=== PATIENT | male | born 2000 | race African-American/Black ===

== ENCOUNTER 2021-11-05 09:26 | Emergency (ER) | payer MEDICAID, SELFPAY ==
[2021-11-05 09:30] VITALS: BP 146/80; PULSE 79; RESP 18; TEMP 36.3; O2SAT 97; BMI 25.1
--- NOTE | 2021-11-05 10:05 | ED.GENADULT ---
HPI - General Adult General Date Seen: 11/05/21 <Chante Warren MD - Last Filed: 11/05/21 14:10> Chief complaint: Arrhythmia/Palpitations <Chante Warren MD - Last Filed: 11/05/21 14:10> Stated complaint: heart skipping beats <Chante Warren MD - Last Filed: 11/05/21 14:10> Time Seen by Provider: 11/05/21 09:40 <Chante Warren MD - Last Filed: 11/05/21 14:10> Source: patient <Chante Warren MD - Last Filed: 11/05/21 14:10> Limitations: no limitations <Chante Warren MD - Last Filed: 11/05/21 14:10> History of Present Illness HPI narrative: Patient is a 20-year-old male who presents for palpitations which he noticed starting this morning. He says every once in a while he feels a skipped beat or a thud in his chest. These are not associated with any chest pain, shortness of breath, lightheadedness, fainting, or other symptoms. He does not recall having anything like this before. He does go to the gym regularly, has not had any difficulties there. He says he has been diagnosed previously with costochondritis, that is been ongoing for some time and he has not taken anything for that. This sometimes bothers him when he lifts weights. He has not had any fevers or chills, no cough. He says he does struggle little bit with anxiety, does not use any substances. Has not had any vomiting or diarrhea. No other medical problems. <Chante Warren MD - Last Filed: 11/05/21 14:10> Related Data Home medications: Home Medications Medication Instructions Recorded Confirmed azelastine 137 mcg (0.1 %) nasal INTRANASAL 11/05/21 spray aerosol fluticasone propionate 50 INTRANASAL 11/05/21 mcg/actuation nasal spray,suspension sertraline 50 mg tablet mg 11/05/21 <Chante Warren MD - Last Filed: 11/05/21 14:10> Allergies/adverse reactions: Allergies Allergy/AdvReac Type Severity Reaction Status Date / Time No Known Drug Allergies Allergy Verified 11/05/21 09:35 <Chante Warren MD - Last Filed: 11/05/21 14:10> Review of Systems Status of ROS: Reports: 10 or more systems reviewed and unremarkable except as noted in History and below <Chante Warren MD - Last Filed: 11/05/21 14:10> [facility] Medical History: Medical History Anxiety <Chante Warren MD - Last Filed: 11/05/21 14:10> Social History: Social History Smoking Status: Never smoker Do you use any of these nicotine containing products: None Second hand tobacco smoke exposure: No How often do you have a drink containing alcohol: monthly or less AUDIT-C Alcohol total score: 1 Non-prescribed substance use: denies use <Chante Warren MD - Last Filed: 11/05/21 14:10> Exam Const: Vital Signs, click to edit/add: Vital Signs - 24 hr 11/05/21 09:30 11/05/21 10:44 Temperature 97.4 F L Pulse Rate [Right Pulse Oximeter] 79 65 Respiratory Rate 18 16 Blood Pressure [Ri ght Upper Arm] 146/80 H 111/72 Pulse Oximetry 97 99 <Chante Warren MD - Last Filed: 11/05/21 14:10> Documenting provider has reviewed patient's vital signs: yes <Chante Warren MD - Last Filed: 11/05/21 14:10> Common normals: no apparent distress, average body habitus, oriented x3, no limitations, healthy appearing, alert and well nourished <Chante Warren MD - Last Filed: 11/05/21 14:10> General appearance: cooperative and comfortable; not in distress <Chante Warren MD - Last Filed: 11/05/21 14:10> Orientation/consciousness: Yes awake, Yes oriented to person and Yes oriented to place <Chante Warren MD - Last Filed: 11/05/21 14:10> HENMT: Common normals: normocephalic <Chante Warren MD - Last Filed: 11/05/21 14:10> Head and scalp: normocephalic <Chante Warren MD - Last Filed: 11/05/21 14:10> Eye: Common normals: PERRL <Chante Warren MD - Last Filed: 11/05/21 14:10> General eye: normal appearance of both eyes <Chante Warren MD - Last Filed: 11/05/21 14:10> Pupil: PERRL <Chante Warren MD - Last Filed: 11/05/21 14:10> Neck & C-Spine: Common normals: no lymphadenopathy and supple <Chante Warren MD - Last Filed: 11/05/21 14:10> Chest: Common normals: inspection of chest normal <Chante Warren MD - Last Filed: 11/05/21 14:10> Resp: Common normals: normal respiratory effort and clear to auscultation bilaterally <Chante Warren MD - Last Filed: 11/05/21 14:10> Auscultation: clear to auscultation bilaterally <Chante Warren MD - Last Filed: 11/05/21 14:10> Cardio: Common normals: regular rate, regular rhythm and no murmurs <Chante Warren MD - Last Filed: 11/05/21 14:10> Rate: regular rate <Chante Warren MD - Last Filed: 11/05/21 14:10> Rhythm: regular rhythm <Chante Warren MD - Last Filed: 11/05/21 14:10> GI: Common normals: Normal to inspection, nondistended, normoactive bowel sounds present, soft to palpation and non-tender <Chante Warren MD - Last Filed: 11/05/21 14:10> Palpation: soft <Chante Warren MD - Last Filed: 11/05/21 14:10> Extremity: Common normals: normal to inspection <Chante Warren MD - Last Filed: 11/05/21 14:10> Neuro: Common normals: oriented x3 <Chante Warren MD - Last Filed: 11/05/21 14:10> Sensorium/orientation: awake, alert, oriented to person and oriented to place <Chante Warren MD - Last Filed: 11/05/21 14:10> Speech: speech normal <Chante Warren MD - Last Filed: 11/05/21 14:10> Gait (neuro): normal gait <MD Christian Fsih Last Filed: 11/05/21 14:10> Psych: Common normals: mental status grossly normal, thought process normal and cooperative <MD Christian Fish Last Filed: 11/05/21 14:10> Thought process: normal thought process <MD Christian Fish Last Filed: 11/05/21 14:10> Skin: Common normals: no rashes or lesions noted and no jaundice <MD Christian Fish Last Filed: 11/05/21 14:10> General skin exam: no rashes or lesions noted <MD Christian Fish Last Filed: 11/05/21 14:10> Course Course Hospital Course: EKG done here in the emergency department shows by my review a normal sinus rhythm, ventricular rate of 83 beats per minute. He has a PVC noted on EKG. I also heard a couple of PVCs when I was listening to his heart. We discussed PVCs. I think this is clearly the explanation for his palpitations. We discussed that these are generally benign in nature. He is asymptomatic with the exception of sensation of skipped beats. His history does not suggest that he would have any electrolyte abnormalities or reason for doing labs at this time. Discussed that if he is having these more frequently or become symptomatic, it would be reasonable to follow up with primary care. For now, I have encouraged him to minimize use of caffeine or any stimulant drinks. He already stays away from other substances. He did ask about management of his costochondritis and we talked about using nonsteroidals for that. <Chante Warren MD - Last Filed: 11/05/21 14:10> Vital Signs Vital signs: Initial Vital Signs Temperature 97.4 F L 11/05/21 09:30 Temperature Source Temporal Artery Scan 11/05/21 09:30 Pulse Rate 79 11/05/21 09:30 Pulse Rhythm 11/05/21 09:30 Respiratory Rate 18 11/05/21 09:30 Blood Pressure 146/80 H 06/28/22 09:30 Blood Pressure Mean 102 11/05/21 09:30 Blood Pressure Position Sitting 11/05/21 09:30 Pulse Oximetry 97 11/05/21 09:30 Oxygen Delivery Method 11/05/21 09:30 Vital Signs Temperature 97.4 F L 11/05/21 09:30 Pulse Rate 79 11/05/21 09:30 Respiratory Rate 18 11/05/21 09:30 Blood Pressure 146/80 H 11/05/21 09:30 Pulse Oximetry 97 11/05/21 09:30 Temperature 97.4 F L 11/05/21 09:30 Pulse Rate 65 11/05/21 10:44 Respiratory Rate 16 11/05/21 10:44 Blood Pressure 111/72 11/05/21 10:44 Pulse Oximetry 99 11/05/21 10:44 <Chante Warren MD - Last Filed: 11/05/21 14:10> Discharge Plan Discharge Clinical Impression: Ventricular premature beats <Chante Warren MD - Last Filed: 11/05/21 14:10> Patient Disposition: Home, Self-Care <Chante Warren MD - Last Filed: 11/05/21 14:10> Condition: Stable <Chante Warren MD - Last Filed: 11/05/21 14:10> Instructions: Premature Ventricular Contractions (ED) <Chante Warren MD - Last Filed: 11/05/21 14:10> Additional Instructions: Avoid significant caffeine or other stimulants. Primary care follow-up if you are having more frequent PVCs or worsening symptoms. Return for severe symptoms such as fainting. <Chante Warren MD - Last Filed: 11/05/21 14:10> Prescriptions: No Action azelastine 137 mcg (0.1 %) aerosol,spray INTRANASAL 0RF fluticasone propionate 50 mcg/actuation spray,suspension INTRANASAL 0RF Label Comments: SHAKE LIQUID AND USE 2 SPRAYS IN EACH NOSTRIL TWICE DAILY sertraline 50 mg tablet 0RF <Chante Warren MD - Last Filed: 11/05/21 14:10> Stand Alone Forms: [employer] Info Instructions <Chante Warren MD - Last Filed: 11/05/21 14:10>
[2021-11-05 10:44] VITALS: BP 111/72; PULSE 65; RESP 16; O2SAT 99
== END 2021-11-05 10:58 | disposition home or self-care (01) ==
LOC: ED 10:58
PROVIDERS: Emergency Provider Emergency Medicine; PCP Family Medicine
DX: I49.3 Ventricular premature depolarization (principal)
CPT/HCPCS: 93005; 99283; 99284

== ENCOUNTER 2022-11-25 16:44 | Emergency (ER) | payer MEDICAID, SELFPAY ==
[2022-11-25 16:49] VITALS: BP 120/75; PULSE 89; RESP 18; TEMP 37.3; O2SAT 97; BMI 24.4
--- NOTE | 2022-11-25 16:58 | ED_ITS ---
HPI - Eye Problem General Time Seen by Provider: 16:58 Date Seen: 11/25/22 Chief complaint: Eye Problems Stated complaint: R eye pain Time Seen by Provider: 11/25/22 16:56 Source: patient, RN notes reviewed and old records reviewed Mode of arrival: ambulatory Limitations: no limitations History of Present Illness HPI Narrative: 21-year-old male who comes in with eye pain and photosensitivity. Patient reports right eye pain starting yesterday. No injury. Watering a bit more than usual but no discharge. Vision is unchanged. No known exposure to UV light. Does not were contacts. Has not been using any eyedrops. Related Data Home Medications Medication Instructions Recorded Confirmed azelastine 137 mcg (0.1 %) nasal intranasal 11/05/21 spray aerosol fluticasone propionate 50 intranasal 11/05/21 mcg/actuation nasal spray,suspension sertraline 50 mg tablet mg 11/05/21 Allergies Allergy/AdvReac Type Severity Reaction Status Date / Time No Known Drug Allergies Allergy Verified 11/05/21 09:35 Review of Systems Status of ROS: Reports: 10 or more systems reviewed and unremarkable except as noted in History and below [facility] Medical History Anxiety Social History Smoking Status: Never smoker Do you use any of these nicotine containing products: None Second hand tobacco smoke exposure: No How often do you have a drink containing alcohol: monthly or less How many standard drinks containing alcohol do you have on a typical day: 3 or 4 How often do you have six or more drinks on one occasion: Never AUDIT-C Alcohol total score: 2 Non-prescribed substance use: denies use service: No Exam Narrative: Exam Narrative: General: well nourished , NAD Head: Atraumatic and normocephalic ENT: External ears and external nose are normal Eyes: Trace conjunctival injection on the right with no ciliary flush. External ocular movements intact, no pain with external ocular movements. Pupillary light reflex intact bilaterally. Trace corneal clouding without hyphema. Pain not improved after instillation of tetracaine and no corneal abrasion or foreign body with fluorescein stain and eyelid eversion. Neck: Full spontaneous range of motion of the neck Lungs: No respiratory distress Musculoskeletal: No tenderness or deformity Neurologic: No gross focal neurologic deficits Skin: No rashes Psych: Mood and affect are appropriate Const: Vital Signs, click to edit/add: Vital Signs - 24 hr 11/25/22 16:49 Temperature 99.2 F Pulse Rate [Right Pulse Oximeter] 89 Respiratory Rate 18 Blood Pressure [Ri ght Upper Arm] 120/75 Pulse Oximetry 97 Oxygen Delivery Me thod Room Air Course Course Hospital Course: Patient seen and examined, prior records reviewed. Patient presents today with right eye pain and photophobia, no trauma. On exam, no ciliary flush and pupil is reactive, no headache, nausea, or vomiting to suggest acute angle closure glaucoma although unable to test pressures. Will consider uveitis or keratitis. No uptake with fluorescein stain. Patient does occasionally smoke cigarettes. Reevaluation(s) Time of Reevaluation #1: 17:45 Reevaluation #1: Care discussed with Dr. Jones, [facility] who would like see the patient before starting on ocular steroid but does feel like this could represent today anterior uveitis. Appointment is made for 10:30 a.m. tomorrow. Patient will be discharged with limited number of [place] to help with pain until he is able to follow-up. Vital Signs Vital signs: Initial Vital Signs Temperature 99.2 F 11/25/22 16:49 Temperature Source Temporal Artery Scan 11/25/22 16:49 Pulse Rate 89 11/25/22 16:49 Respiratory Rate 18 11/25/22 16:49 Blood Pressure 120/75 11/25/22 16:49 Blood Pressure Mean 90 11/25/22 16:49 Blood Pressure Position Sitting 11/25/22 16:49 Pulse Oximetry 97 11/25/22 16:49 Oxygen Delivery Method Room Air 11/25/22 16:49 Vital Signs Temperature 99.2 F 11/25/22 16:49 Pulse Rate 89 11/25/22 16:49 Respiratory Rate 18 11/25/22 16:49 Blood Pressure 120/75 11/25/22 16:49 Pulse Oximetry 97 11/25/22 16:49 Oxygen Delivery Method Room Air 11/25/22 16:49 Temperature 99.2 F 11/25/22 16:49 Pulse Rate 89 11/25/22 16:49 Respiratory Rate 18 11/25/22 16:49 Blood Pressure 120/75 11/25/22 16:49 Pulse Oximetry 97 11/25/22 16:49 Oxygen Delivery Method Room Air 11/25/22 16:49 Discharge Plan Discharge Clinical Impression: Acute right eye pain, Photophobia of right eye Patient Disposition: Home, Self-Care Condition: Stable Instructions: Eye Pain (ED), Photophobia (ED) Additional Instructions: Go to [facility] at [address] [place] [address] in [place] for an appointment at 10:30 a.m. tomorrow Activity Level: Activity as Tolerated Prescriptions: No Action azelastine 137 mcg (0.1 %) aerosol,spray INTRANASAL fluticasone propionate 50 mcg/actuation spray,suspension INTRANASAL Patient Comments: SHAKE LIQUID AND USE 2 SPRAYS IN EACH NOSTRIL TWICE DAILY sertraline 50 mg tablet Follow Up/Referrals: Melodie Mckeon DO [Primary Care Provider] - Stand Alone Forms: [employer] Info Instructions
[2022-11-25] MEDS: TETRACAINE 0.5% OPHTH 2 DROP EYE-RIGHT (17:30)
[2022-11-25] MEDS: FLUORESCEIN SODIUM TOPICAL STRIP 1 STRIP EYE-RIGHT (17:30)
== END 2022-11-25 18:13 | disposition home or self-care (01) ==
PROVIDERS: Emergency Provider Family Medicine; PCP Family Medicine
DX: H57.11 Ocular pain, right eye (principal); H53.141 Visual discomfort, right eye
CPT/HCPCS: 99283; 99284; A9270

== ENCOUNTER 2022-12-08 14:23 | Emergency (ER) | payer MEDICAID, SELFPAY ==
[2022-12-08 14:31] VITALS: BP 128/79; RESP 18; TEMP 36.6; O2SAT 99; BMI 24.4
--- NOTE | 2022-12-08 15:08 | ED_ITS ---
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 He says he was prescribed an antibiotic, moxifloxacin, couple of weeks ago but only took couple of days of the 5 day course and then lost the prescription. His girlfriend was also being treated for the same thing, he is not sure how much of her antibiotic she took or did not take but they have continued to have intercourse and his symptoms have returned. He does not have discharge, fevers, or other changes. Review of his [facility] notes show that GC chlamydia and Ureaplasma were all negative. Related Data Home Medications Medication Instructions Recorded Confirmed azelastine 137 mcg (0.1 %) nasal intranasal 11/05/21 spray aerosol fluticasone propionate 50 intranasal 11/05/21 mcg/actuation nasal spray,suspension sertraline 50 mg tablet mg 11/05/21 Previous Rx's Medication Instructions Recorded moxifloxacin 400 mg tablet 400 mg PO DAILY 5 days #5 tabs 12/08/22 Allergies Allergy/AdvReac Type Severity Reaction Status Date / Time No Known Drug Allergies Allergy Verified 11/05/21 09:35 Review of Systems Status of ROS: Reports: 6 or more systems reviewed and unremarkable except as noted in History and below [facility] Medical History Anxiety Social History Smoking Status: Never smoker Do you use any of these nicotine containing products: None Second hand tobacco smoke exposure: No How often do you have a drink containing alcohol: monthly or less How many standard drinks containing alcohol do you have on a typical day: 3 or 4 How often do you have six or more drinks on one occasion: Never AUDIT-C Alcohol total score: 2 Non-prescribed substance use: denies use service: No Exam Narrative: Exam Narrative: Vital signs reviewed In general, alert, well-appearing young man. Abdomen: Soft nontender. No CVA tenderness. Skin: Warm dry. Const: Vital Signs, click to edit/add: Vital Signs - 24 hr 12/08/22 14:31 Temperature 98 F Respiratory Rate 18 Blood Pressure [Le ft Upper Arm] 128/79 Pulse Oximetry 99 Oxygen Delivery Me thod Room Air Documenting provider has reviewed patient's vital signs: yes Course Course Hospital Course: At this point, given that he was incompletely treated and has continued to have intercourse, I think it makes sense just to treat with a full course of moxifloxacin and then he can retest afterward if he would like. I do not think additional testing is likely the reveal anything new today given that it was just done on November 27. Return for worsening. Stressed that they should avoid intercourse for 2 weeks well they are both being treated. Vital Signs Vital signs: Initial Vital Signs Temperature 98 F 12/08/22 14:31 Temperature Source Temporal Artery Scan 12/08/22 14:31 Pulse Rhythm Regular 12/08/22 14:31 Respiratory Rate 18 12/08/22 14:31 Blood Pressure 128/79 12/08/22 14:31 Blood Pressure Mean 95 12/08/22 14:31 Blood Pressure Position Sitting 12/08/22 14:31 Pulse Oximetry 99 12/08/22 14:31 Oxygen Delivery Method Room Air 12/08/22 14:31 Vital Signs Temperature 98 F 12/08/22 14:31 Respiratory Rate 18 12/08/22 14:31 Blood Pressure 128/79 12/08/22 14:31 Pulse Oximetry 99 12/08/22 14:31 Oxygen Delivery Method Room Air 12/08/22 14:31 Temperature 98 F 12/08/22 14:31 Respiratory Rate 18 12/08/22 14:31 Blood Pressure 128/79 12/08/22 14:31 Pulse Oximetry 99 12/08/22 14:31 Oxygen Delivery Method Room Air 12/08/22 14:31 Discharge Plan Discharge Clinical Impression: Mycoplasma infection Patient Disposition: Home, Self-Care Condition: Stable Instructions: Nonspecific Urethritis in Men (ED) Additional Instructions: Take antibiotic as prescribed. Clinic follow-up for retesting if desired. No intercourse for 2 weeks while undergoing treatment. Prescriptions: New moxifloxacin 400 mg tablet 400 mg PO DAILY 5 Days Qty: 5 0RF No Action azelastine 137 mcg (0.1 %) aerosol,spray INTRANASAL fluticasone propionate 50 mcg/actuation spray,suspension INTRANASAL Patient Comments: SHAKE LIQUID AND USE 2 SPRAYS IN EACH NOSTRIL TWICE DAILY sertraline 50 mg tablet Follow Up/Referrals: Melodie Mckeon DO [Primary Care Provider] - Stand Alone Forms: [employer] Info Instructions
== END 2022-12-08 15:10 | disposition home or self-care (01) ==
PROVIDERS: Emergency Provider Emergency Medicine; PCP Family Medicine
DX: R10.30 Lower abdominal pain, unspecified (principal); A49.3 Mycoplasma infection, unspecified site
CPT/HCPCS: 99283

== ENCOUNTER 2022-12-30 17:04 | Emergency (ER) | payer MEDICAID, SELFPAY ==
[2022-12-30 17:08] VITALS: BP 115/78; PULSE 83; RESP 18; TEMP 36.2; O2SAT 97; BMI 24.4
--- NOTE | 2022-12-30 17:56 | ED_ITS ---
HPI - General Adult General Date Seen: 12/30/22 Chief complaint: Abdominal Pain Stated complaint: abdominal pain Time Seen by Provider: 12/30/22 17:42 Source: patient Mode of arrival: ambulatory Limitations: no limitations History of Present Illness HPI narrative: Patient is a 22-year-old male here in [place] for STD testing. He did have a recently diagnosed mycoplasma infection, had 2 courses of antibiotics for that. Symptomatically he is improved but wanted to make sure that the infection was cleared. He just wants general STD testing to include gonorrhea, chlamydia, HIV and syphilis. He does tell me that his girlfriend has subsequently found out she is , so they are dealing with that. He notes that their relationship is somewhat unstable, but does say that he and she have been working through this together reasonably well. He is uncertain what she ultimately will do regarding the . Her symptoms have improved in terms of the abdominal pain that she was having. He says they both did complete the antibiotics and abstained from sex during treatment. Related Data Home Medications Medication Instructions Recorded Confirmed azelastine 137 mcg (0.1 %) nasal intranasal 11/05/21 spray aerosol fluticasone propionate 50 intranasal 11/05/21 mcg/actuation nasal spray,suspension sertraline 50 mg tablet mg 11/05/21 Previous Rx's Medication Instructions Recorded moxifloxacin 400 mg tablet 400 mg PO DAILY 5 days #5 tabs 12/08/22 Allergies Allergy/AdvReac Type Severity Reaction Status Date / Time No Known Drug Allergies Allergy Verified 11/05/21 09:35 Review of Systems Status of ROS: Reports: 6 or more systems reviewed and unremarkable except as noted in History and below [facility] Medical History Anxiety ?F41.9 - Anxiety disorder, unspecified (ICD-10) Social History Smoking Status: Never smoker Do you use any of these nicotine containing products: None Second hand tobacco smoke exposure: No How often do you have a drink containing alcohol: monthly or less How many standard drinks containing alcohol do you have on a typical day: 3 or 4 How often do you have six or more drinks on one occasion: Never AUDIT-C Alcohol total score: 2 Non-prescribed substance use: denies use service: No Exam Narrative: Exam Narrative: Vital signs reviewed In general, alert, well-appearing male. Abdomen: Soft nontender. No CVA tenderness. Skin: Warm dry well perfused. Const: Vital Signs, click to edit/add: Vital Signs - 24 hr 12/30/22 17:08 Temperature 97.1 F L Pulse Rate [Pulse Oximeter] 83 Respiratory Rate 18 Blood Pressure [Ri ght Upper Arm] 115/78 Pulse Oximetry 97 Oxygen Delivery Me thod Room Air Documenting provider has reviewed patient's vital signs: yes Course Course Hospital Course: Will go ahead and do STD testing for him today, screen for mycoplasma infection, gonorrhea and chlamydia with urine and will draw blood for HIV and syphilis. Discussed with him that we will call if there is anything that shows up needing treatment. He can log in on my health if he wants to review the results himself. Vital Signs Vital signs: Initial Vital Signs Temperature 97.1 F L 12/30/22 17:08 Temperature Source Temporal Artery Scan 12/30/22 17:08 Pulse Rate 83 12/30/22 17:08 Pulse Rhythm Regular 12/30/22 17:08 Respiratory Rate 18 12/30/22 17:08 Blood Pressure 115/78 12/30/22 17:08 Blood Pressure Mean 90 12/30/22 17:08 Blood Pressure Position Sitting 12/30/22 17:08 Pulse Oximetry 97 12/30/22 17:08 Oxygen Delivery Method Room Air 12/30/22 17:08 Vital Signs Temperature 97.1 F L 12/30/22 17:08 Pulse Rate 83 12/30/22 17:08 Respiratory Rate 18 12/30/22 17:08 Blood Pressure 115/78 12/30/22 17:08 Pulse Oximetry 97 12/30/22 17:08 Oxygen Delivery Method Room Air 12/30/22 17:08 Temperature 97.1 F L 12/30/22 17:08 Pulse Rate 83 12/30/22 17:08 Respiratory Rate 18 12/30/22 17:08 Blood Pressure 115/78 12/30/22 17:08 Pulse Oximetry 97 12/30/22 17:08 Oxygen Delivery Method Room Air 12/30/22 17:08 Discharge Plan Discharge Clinical Impression: Screen for STD (sexually transmitted disease) Patient Disposition: Home, Self-Care Condition: Stable Additional Instructions: We will call you if there is anything that needs to be treated. You can check the results on my health if you would like. Prescriptions: No Action azelastine 137 mcg (0.1 %) aerosol,spray INTRANASAL fluticasone propionate 50 mcg/actuation spray,suspension INTRANASAL Patient Comments: SHAKE LIQUID AND USE 2 SPRAYS IN EACH NOSTRIL TWICE DAILY sertraline 50 mg tablet moxifloxacin 400 mg tablet 400 mg PO DAILY 5 Days Qty: 5 0RF Follow Up/Referrals: Melodie Mckeon DO [Primary Care Provider] - Stand Alone Forms: [employer] Info Instructions
[2022-12-30 19:51] LABS: HIV 1/2/P24 Combo Screen* Negative (Negative)
[2022-12-30 20:26] LABS: Chlamydia DNA Amplified* NOT DETECTED (No Detected); GC DNA Amplified* NOT DETECTED (No Detected)
[2023-01-02 03:30] LABS: Rapid Plasma Reagin (RPR) Non Reactive (Non Reactive)
== END 2022-12-30 18:41 | disposition home or self-care (01) ==
PROVIDERS: Emergency Provider Emergency Medicine; PCP Family Medicine
DX: Z11.3 Encounter for screening for infections with a predominantly sexual mode of transmission (principal)
CPT/HCPCS: 36415; 86592; 86703; 87109; 87491; 87563; 87591; 87798; 99282; 99283

== ENCOUNTER 2023-06-15 21:28 | Emergency (ER) | payer OTHER, SELFPAY ==
[2023-06-15 21:33] VITALS: BP 132/76; PULSE 74; RESP 16; TEMP 37.1; O2SAT 98; BMI 24.4
--- NOTE | 2023-06-15 21:50 | ED.GENADULT ---
HPI - General Adult General Chief complaint: Ear/Nose/Throat Problem Stated complaint: Left side ear pain Time Seen by Provider: 06/15/23 21:31 History of Present Illness HPI narrative: This 22-year-old male comes in reporting pain in his left ear with some watery drainage. These symptoms started this morning. He does not report any cough or upper respiratory symptoms. He has not had any fevers. He states that he is not regularly around water like frequently being in a swimming pool. He reports ear infections as a young child but has not had any since then. Related Data Home Medications Medication Instructions Recorded Confirmed azelastine 137 mcg (0.1 %) nasal intranasal 11/05/21 spray aerosol fluticasone propionate 50 intranasal 11/05/21 mcg/actuation nasal spray,suspension sertraline 50 mg tablet mg 11/05/21 fluconazole 150 mg tablet 150 mg PO 06/15/23 Allergies Allergy/AdvReac Type Severity Reaction Status Date / Time No Known Drug Allergies Allergy Verified 06/15/23 21:38 Review of Systems Status of ROS: Reports: 10 or more systems reviewed and unremarkable except as noted in History and below Narrative: Constitutional: No fevers, no weight gain or loss. Eyes: No discharge. No vision changes. HENT: No congestion, no sore throat. Left ear pain with some drainage. Cardiovascular: No chest pain, no palpitations. Respiratory: No shortness of breath, no wheezes, no cough. Gastrointestinal: No abdominal pain, no vomiting, no diarrhea. Genitourinary: No dysuria, no hematuria. Musculoskeletal: Normal range of motion. Skin: No rashes, no pruritis. Neurological: No dizziness, weakness, sensory change, speech change. Endo/Heme/Allergies: No bruising or bleeding. No polydipsia. Pysch: no suicidality, no anxiety, no insomnia. All other systems reviewed and are negative. [facility] Medical History Anxiety ?F41.9 - Anxiety disorder, unspecified (ICD-10) Social History Smoking Status: Former smoker Do you use any of these nicotine containing products: None Second hand tobacco smoke exposure: No How often do you have a drink containing alcohol: monthly or less How many standard drinks containing alcohol do you have on a typical day: 3 or 4 How often do you have six or more drinks on one occasion: Never AUDIT-C Alcohol total score: 2 Non-prescribed substance use: denies use service: No Exam Narrative: Exam Narrative: Constitutional: Well-developed, well-nourished, no acute distress. HEENT: Normocephalic, atraumatic. Right tympanic membrane appears normal. Left auditory canal is lined with purulent fluid and the associated tympanic membrane is dull typical of infection. Neck: Normal range of motion. Nontender. Supple. Heart: Regular. No murmurs. Normal rate. Intact distal pulses. Lungs: Clear to auscultation. No chest discomfort. No wheezes, rhonchi, or rales. Abdomen: Normal bowel sounds. Nontender. No rebound tenderness. Genitalia: Deferred. Back: No midline tenderness. Normal range of motion. Extremities: Normal range of motion. No injury. Skin: Intact. No rash. Warm. No erythema or pallor. Neurologic: No altered sensation. No weakness. Alert and oriented. Psychiatric: No suicidality. No anxiety or depression. No insomnia. Nursing notes and vitals signs are reviewed. Const: Vital Signs, click to edit/add: Vital Signs - 24 hr 06/15/23 21:33 Temperature 98.7 F Pulse Rate [Pulse Oximeter] 74 Respiratory Rate 16 Blood Pressure [Ri ght Upper Arm] 132/76 Pulse Oximetry 98 Oxygen Delivery Me thod Room Air Course Vital Signs Vital signs: Initial Vital Signs Temperature 98.7 F 06/15/23 21:33 Temperature Source Temporal Artery Scan 06/15/23 21:33 Pulse Rate 74 06/15/23 21:33 Respiratory Rate 16 06/15/23 21:33 Blood Pressure 132/76 06/15/23 21:33 Blood Pressure Mean 94 06/15/23 21:33 Blood Pressure Position Sitting 06/15/23 21:33 Pulse Oximetry 98 06/15/23 21:33 Oxygen Delivery Method Room Air 06/15/23 21:33 Vital Signs Temperature 98.7 F 06/15/23 21:33 Pulse Rate 74 06/15/23 21:33 Respiratory Rate 16 06/15/23 21:33 Blood Pressure 132/76 06/15/23 21:33 Pulse Oximetry 98 06/15/23 21:33 Oxygen Delivery Method Room Air 06/15/23 21:33 Temperature 98.7 F 06/15/23 21:33 Pulse Rate 74 06/15/23 21:33 Respiratory Rate 16 06/15/23 21:33 Blood Pressure 132/76 06/15/23 21:33 Pulse Oximetry 98 06/15/23 21:33 Oxygen Delivery Method Room Air 06/15/23 21:33 Medical Decision Making MDM Narrative Medical decision making narrative: This patient comes in reporting left ear pain with some drainage. He is showing sign of otitis media and otitis externa. He received [facility] prescriptions for amoxicillin and Cortisporin otic. Discharge Plan Discharge Clinical Impression: Otitis externa, Otitis media Patient Disposition: Home, Self-Care Condition: Stable Additional Instructions: Take medication as prescribed. Follow up with MD or return if worsening. Prescriptions: No Action azelastine 137 mcg (0.1 %) aerosol,spray INTRANASAL fluticasone propionate 50 mcg/actuation spray,suspension INTRANASAL Patient Comments: SHAKE LIQUID AND USE 2 SPRAYS IN EACH NOSTRIL TWICE DAILY sertraline 50 mg tablet fluconazole 150 mg tablet 150 mg PO Follow Up/Referrals: Melodie Mckeon DO [Primary Care Provider] - Stand Alone Forms: [facility] Info Instructions
== END 2023-06-15 22:30 | disposition home or self-care (01) ==
PROVIDERS: Emergency Provider Emergency Medicine Emergency Medical Services; PCP Family Medicine
DX: H66.92 Otitis media, unspecified, left ear (principal); H60.92 Unspecified otitis externa, left ear
CPT/HCPCS: 99283; 99284

== ENCOUNTER 2023-10-27 17:15 | Emergency (ER) | payer OTHER, SELFPAY ==
[2023-10-27 17:17] VITALS: BP 145/82; PULSE 88; RESP 18; TEMP 36.6; O2SAT 99; BMI 24.4
--- NOTE | 2023-10-27 17:26 | ED.GENADULT ---
HPI - General Adult General Chief complaint: Unspecified Complaint, Adult Stated complaint: Need STI testing Time Seen by Provider: 10/27/23 17:15 History of Present Illness HPI narrative: pain with urination and noted discharge , would like STD 22-year-old young man presenting to the emergency department with concern of dysuria and penile discharge, not bloody. Like screening for STD. No fever. No abdominal pain nausea cramping. No rashes. Has been in a relationship recently and is wondering about exposures particularly involving the oropharynx. Related Data Home Medications ?Medication ?Instructions ?Recorded ?Confirmed azelastine 137 mcg (0.1 %) nasal intranasal 11/05/21 spray fluticasone propionate 50 intranasal 11/05/21 mcg/actuation nasal spray,suspension sertraline 50 mg tablet mg 11/05/21 fluconazole 150 mg tablet 150 mg PO 06/15/23 Previous Rx's ?Medication ?Instructions ?Recorded amoxicillin 500 mg capsule 500 mg PO TID 7 days #21 caps 06/15/23 [id number] 3.3 4 drp otic (ear) TID #10 mL 06/15/23 mg-3 mg-10 mg-0.5 mg/mL ear drops,susp (Cortisporin-TC) Allergies Allergy/AdvReac Type Severity Reaction Status Date / Time No Known Drug Allergies Allergy Verified 06/15/23 21:38 Review of Systems Status of ROS: Reports: 6 or more systems reviewed and unremarkable except as noted in History and below [facility] Medical History Anxiety ?F41.9 - Anxiety disorder, unspecified (ICD-10) Social History Smoking Status: Former smoker Do you use any of these nicotine containing products: None Second hand tobacco smoke exposure: No How often do you have a drink containing alcohol: monthly or less How many standard drinks containing alcohol do you have on a typical day: 3 or 4 How often do you have six or more drinks on one occasion: Never AUDIT-C Alcohol total score: 2 Non-prescribed substance use: denies use service: No Exam Narrative: Exam Narrative: Pleasant. NAD. Mildly anxious understandably. Breathing easily. Abdomen is flat soft and nontender. Skin is warm and dry without lesion. There is fluid it at the urethral meatus. Do not appreciate inguinal lymphadenopathy or other swelling elsewhere. Const: Vital Signs, click to edit/add: Vital Signs - 24 hr 10/27/23 17:17 Temperature 97.9 F Pulse Rate [Right Pulse Oximeter] 88 Respiratory Rate 18 Blood Pressure [Ri ght Upper Arm] 145/82 H Pulse Oximetry 99 Oxygen Delivery Me thod Room Air Documenting provider has reviewed patient's vital signs: yes Course Vital Signs Vital signs: Initial Vital Signs Temperature 97.9 F 10/27/23 17:17 Temperature Source Temporal Artery Scan 10/27/23 17:17 Pulse Rate 88 10/27/23 17:17 Respiratory Rate 18 10/27/23 17:17 Blood Pressure 145/82 H 10/27/23 17:17 Blood Pressure Mean 103 10/27/23 17:17 Blood Pressure Position Sitting 10/27/23 17:17 Pulse Oximetry 99 10/27/23 17:17 Oxygen Delivery Method Room Air 10/27/23 17:17 Vital Signs Temperature 97.9 F 10/27/23 17:17 Pulse Rate 88 10/27/23 17:17 Respiratory Rate 18 10/27/23 17:17 Blood Pressure 145/82 H 10/27/23 17:17 Pulse Oximetry 99 10/27/23 17:17 Oxygen Delivery Method Room Air 10/27/23 17:17 Temperature 97.9 F 10/27/23 17:17 Pulse Rate 88 10/27/23 17:17 Respiratory Rate 18 10/27/23 17:17 Blood Pressure 145/82 H 10/27/23 17:17 Pulse Oximetry 99 10/27/23 17:17 Oxygen Delivery Method Room Air 10/27/23 17:17 Medications Administered Medications: Discontinued Medications Generic Name Dose Route Start Last Admin Trade Name Freq PRN Reason Stop Dose Admin Ceftriaxone Sodium 250 mg 10/27/23 20:15 10/27/23 20:25 Ceftriaxone 250 Mg Vial IM 10/27/23 20:16 250 mg ONCE ONE Administration Lidocaine HCl 0.9 ml 10/27/23 20:15 10/27/23 20:26 Lidocaine 1% 5 Ml (Pf) 5 Ml Vial IM 0.9 ml DIRECTED PRN Administration Pain Medical Decision Making MDM Narrative Medical decision making narrative: Would test for apparent urethritis here. Does not seem to have or broad sequelae. Urinalysis with small white cells. Swab for gonorrhea chlamydia ultimately was positive for chlamydia. Discussed recommendations for partner and exposures as indicated. Age stratified treatment here in the emergency department with initially an injection of Rocephin. Recommending screening for other STIs like HIV and syphilis at follow-up clinic visit. See patient discharge plan for further discussion Lab Data Lab results reviewed: Yes I reviewed the patient's lab results Labs: Lab Results 10/27/23 10/27/23 Range/Units 18:10 18:48 Urine Color Yellow (Yellow) Urine Appearance Clear (Clear) Urine pH 8.5 (5.0-8.5) Ur Specific [place] 1.015 (1.000-1.030) Urine Protein Negative (Negative) Urine Glucose (UA) Negative (Negative) Urine Ketones Negative (Negative) Urine Blood Negative (Negative) Urine Nitrite Negative (Negative) Urine Bilirubin Negative (Negative) Urine Urobilinogen 0.2 (0.2-1.0) Ur Leukocyte Esterase Trace A (Negative) Urine RBC 0-2 (0-2) Urine WBC 2-5 (0-5) Ur Squamous Epith Cells None (None-Few) Urine Bacteria None (None) Vaginal Trichomonas No Trichomonas Seen (None Seen) Vaginal Yeast No Yeast Seen (None Seen) Vaginal Clue Cells No Clue Cells Seen (None Seen) C.trachomatis Ampl DNA DETECTED A (No Detected) N.gonorrhoeae Ampl DNA NOT DETECTED (No Detected) Discharge Plan Discharge Clinical Impression: Chlamydial urethritis in male Patient Disposition: Home, Self-Care Condition: Stable Additional Instructions: Chlamydia often remains hidden particularly in the genitourinary tract; asymptomatic for an unspecified amount of time. If having symptoms here, often begin 7-10 days after exposure. It can also infect the oropharynx but especially the eyes as can infect the conjunctiva. In this case testing is not recommended unless symptomatic. It would be a good idea to test yourself for cure in 3-4 months. Doxycycline from [facility]. Would consider also following up with [facility] locally for free clinic if needed. Prescriptions: No Action azelastine 137 mcg (0.1 %) aerosol,spray INTRANASAL fluticasone propionate 50 mcg/actuation spray,suspension INTRANASAL Patient Comments: SHAKE LIQUID AND USE 2 SPRAYS IN EACH NOSTRIL TWICE DAILY sertraline 50 mg tablet fluconazole 150 mg tablet 150 mg PO amoxicillin 500 mg capsule 500 mg PO TID 7 Days Qty: 21 0RF Cortisporin-TC 3.3-3-10-0.5 mg/mL drops,suspension 4 drp otic (ear) TID Qty: 10 0RF Follow Up/Referrals: Melodie Mckeno DO [Staff Physician] - Stand Alone Forms: [facility] Info Instructions
[2023-10-27 18:37] LABS: Clue Cells No Clue Cells Seen (None Seen); Trichomonas No Trichomonas Seen (None Seen); Yeast No Yeast Seen (None Seen)
[2023-10-27 18:59] LABS: Appearance Urine Clear (Clear); Bilirubin Urine Negative (Negative); Blood Urine Negative (Negative); Color Urine Yellow (Yellow); Glucose Urine Negative (Negative); Ketones Urine Negative (Negative); Leukocyte Esterase Urine Trace (Negative); Nitrite Urine Negative (Negative); Protein Urine Negative (Negative); Specific Gravity Urine 1.015 (1.000-1.030); Urobilinogen Urine 0.2 (0.2-1.0); pH Urine 8.5 (5.0-8.5)
[2023-10-27 19:31] LABS: RBC Urine 0-2 (0-2)
[2023-10-27 20:07] LABS: Chlamydia DNA Amplified* DETECTED (No Detected); GC DNA Amplified* NOT DETECTED (No Detected)
[2023-10-27] MEDS: cefTRIAXone 250 MG VIAL IM (20:25)
[2023-10-27] MEDS: LIDOCAINE 1% 5 ml (pf) 5 ML VIAL 0.9 ML IM (20:26)
== END 2023-10-27 21:13 | disposition home or self-care (01) ==
PROVIDERS: Emergency Provider Family Medicine
DX: A56.01 Chlamydial cystitis and urethritis (principal)
CPT/HCPCS: 81001; 87086; 87109; 87210; 87491; 87591; 96372; 99283; 99284; J0696